=== PATIENT | male | born 1990 | race Caucasian/White ===

== ENCOUNTER 2022-02-03 16:50 | Emergency (ER) | payer OTHER ==
[~2022-02-03] VITALS: Ht 177.8 cm; Wt 97.7 kg
[~2022-02-03 16:50] MED LIST: ALBU8HFA IH; CITA-144 PO; RISP1TAB7 PO
[2022-02-03] MEDS ORDERED: IBUPROFEN 600 MG TABLET PO ONE (18:00)
[2022-02-03] MEDS ORDERED: ESZO3TAB39 PO (18:02)
[2022-02-03] MEDS ORDERED: BUPR1FIL19 SL (18:02)
[2022-02-03] MEDS ORDERED: GABA-1181 PO (18:02)
[2022-02-03] MEDS ORDERED: PROP10DR2 OU (18:02)
[2022-02-03] MEDS ORDERED: ACET-3385 PO (20:50)
[2022-02-03] MEDS ORDERED: IBUP-2070 PO (20:51)
[2022-02-03 20:54] VITALS: BP 128/75
== END 2022-02-03 20:55 | disposition home or self-care (01) ==
LOC: EMS 16:50
DX: R51.9 Headache, unspecified (principal); J45.909 Unspecified asthma, uncomplicated; F17.210 Nicotine dependence, cigarettes, uncomplicated; F12.90 Cannabis use, unspecified, uncomplicated; Z87.09 Personal history of other diseases of the respiratory system; Z98.890 Other specified postprocedural states; Z88.8 Allergy status to other drugs, medicaments and biological substances
CPT/HCPCS: 70450; 99284